=== PATIENT | male | born 1985 | race Two or more races ===

== ENCOUNTER 2018-10-31 23:26 | Emergency (ER) | payer SELFPAY | END 2018-10-31 23:50 | disposition left against medical advice (07) | LOC: ER 23:33 | DX: S50.362A Insect bite (nonvenomous) of left elbow, initial encounter (principal); Z53.21 Procedure and treatment not carried out due to patient leaving prior to being seen by health care provider; W57.XXXA Bitten or stung by nonvenomous insect and other nonvenomous arthropods, initial encounter; Y93.89 Activity, other specified; Y99.8 Other external cause status; Y92.89 Other specified places as the place of occurrence of the external cause ==

== ENCOUNTER 2018-11-02 05:54 | Emergency (ER) | payer SELFPAY ==
[~2018-11-02] VITALS: Ht 170.2 cm; Wt 63.5 kg
[2018-11-02 07:12] VITALS: BP 132/81
[2018-11-02] MEDS ORDERED: cefTRIAXone SOD 1,000 MG VL IM ONE (07:15)
[2018-11-02] MEDS ORDERED: LIDOCAINE 1% HCL (LOCAL ANESTH.) INJ 20ML MDV ONE (07:23)
[2018-11-02] MEDS ORDERED: TETANUS-DIPTH-ACEL PERTUSSIS 0.5ML SYRG IM ONE (07:30)
[2018-11-02] MEDS ORDERED: ACETAMINOPHEN 500 MG TAB PO ONE (07:45)
== END 2018-11-02 08:17 | disposition home or self-care (01) ==
LOC: ER 05:54 → EDBD 05:54 → ER 08:17
DX: L02.512 Cutaneous abscess of left hand (principal); F17.210 Nicotine dependence, cigarettes, uncomplicated
CPT/HCPCS: 73070; 90471; 90715; 96372; 99283; J0696; J2001

== ENCOUNTER 2020-10-06 20:34 | Emergency (ER) | payer SELFPAY ==
[~2020-10-06] VITALS: Ht 172.7 cm; Wt 65.8 kg
[2020-10-06 23:17] LABS: Basophils # (auto) 0.1 10 ^3/uL (0-0.2); Basophils % (auto) 0.7 % (0.0-2.0); Eosinophils # (auto) 0.2 10 ^3/uL (0-0.8); Eosinophils % (auto) 2.6 % (0.0-7.0); Hematocrit 46.1 % (41.0-53.0); Hemoglobin 15.9 g/dL (13.5-17.5); Lymphocytes # (auto) 2.6 10 ^3/uL (0.4-5.4); Lymphocytes % (auto) 28.7 % (10.0-50.0); Mean Corpuscular Hemoglobin 31.4 pg (28.0-32.0); Mean Corpuscular Hgb Conc. 34.6 g/dL (32.0-36.0); Mean Corpuscular Volume 90.9 fL (80.0-100.0); Monocytes # (auto) 0.9 10 ^3/uL (0-1.3); Monocytes % (auto) 10.3 % (0.0-12.0); Neutrophils # (auto) 5.2 10 ^3/uL (1.6-8.6); Neutrophils % (auto) 57.7 % (37.0-80.0); Nucleated Red Blood Cells % 0.1 %; Red Blood Cells 5.08 10^6/uL (4.5-5.90); Red Cell Distribution Width 14.6 % (11.8-14.3); White Blood Cell 9.1 10^3/uL (4.4-10.8)
[2020-10-06 23:29] LABS: Albumin 3.9 g/dL (3.4-5.0); Calcium 8.7 mg/dL (8.5-10.1); Potassium 3.8 mmol/L (3.5-5.1)
[2020-10-06 23:32] LABS: BUN/Creatinine Ratio 13.7; Bilirubin, Total 0.4 mg/dL (0.2-1.0); Total Protein 7.8 g/dL (6.4-8.2)
[2020-10-07 02:00] VITALS: BP 114/74
== END 2020-10-07 07:08 | disposition left against medical advice (07) ==
LOC: ER 20:35
DX: R07.89 Other chest pain (principal); F15.10 Other stimulant abuse, uncomplicated; Z53.21 Procedure and treatment not carried out due to patient leaving prior to being seen by health care provider
CPT/HCPCS: 36415; 71045; 80053; 84484; 85025; 85049; 93005